=== PATIENT | female | born 1985 | race Caucasian/White ===

== ENCOUNTER 2017-12-24 08:10 | Outpatient (CLI) | payer OTHER ==
[2017-12-24] MEDS: SODIUM CHLORIDE 0.9% INJ 10 ML SYR IV (09:20)
[2017-12-24 09:51] LABS: BASO % 0.4 % (0.0-1.0); EOS # 0.1 10^3/uL (0.0-0.50); EOS % 1.2 % (0.0-3.0); HEMATOCRIT 40.9 % (36.0-47.0); IMMATURE GRANULOCYTE % 0.6 % (0-3.0); LYMPH # 1.6 10^3/uL (1.5-4.5); LYMPH % 31.7 % (24.0-44.0); MEAN CORPUSCULAR HEMOGLOBIN 32.9 pg (27.0-33.0); MEAN CORPUSCULAR HGB CONC 34.2 g/dl (32.0-36.5); MEAN CORPUSCULAR VOLUME 96.2 fl (80.0-96.0); MONO # 0.4 10^3/uL (0.0-0.8); MONO % 8.6 % (0.0-5.0); NEUTROPHILS # 2.9 10^3/uL (1.8-7.7); NEUTROPHILS % 57.5 % (36.0-66.0); PLATELET COUNT, AUTOMATED 175 10^3/uL (150-450); RED BLOOD COUNT 4.25 10^6/uL (4.00-5.40); RED CELL DISTRIBUTION WIDTH 12.1 % (11.5-14.5)
[2017-12-24 10:18] LABS: ALBUMIN 3.3 GM/DL (3.2-5.2); ALKALINE PHOSPHATASE 53 U/L (45-117); ALT/SGPT 18 U/L (12-78); ANION GAP 10 MEQ/L (8-16); AST/SGOT 9 U/L (7-37); BILIRUBIN,TOTAL 0.5 MG/DL (0.2-1.0); BLOOD UREA NITROGEN 11 MG/DL (7-18); CALCIUM LEVEL 8.3 MG/DL (8.5-10.1); CARBON DIOXIDE LEVEL 23 MEQ/L (21-32); CHLORIDE LEVEL 113 MEQ/L (98-107); CREATININE FOR GFR 0.78 MG/DL (0.55-1.30); GLOMERULAR FILTRATION RATE > 60.0 (>60); GLUCOSE, FASTING 86 MG/DL (70-100); IMMUNOGLOBULIN A 77.4 MG/DL (70-400); IMMUNOGLOBULIN G 729 MG/DL (681-1648); IMMUNOGLOBULIN M 29.8 MG/DL (40-230); POTASSIUM SERUM 3.4 MEQ/L (3.5-5.1); SODIUM LEVEL 146 MEQ/L (136-145); TOTAL PROTEIN 6.3 GM/DL (6.4-8.2)
[2017-12-24 11:04] LABS: IMMUNOGLOBULIN E < 3.6 IU/ML (<100)
[2017-12-29 14:19] LABS: ANTI TETANUS ANTIBODY 0.92 IU/mL (<0.10); COMPLEMENT TOTAL (CH50) > 60 U/mL (>41); STREP PNEUMO TYPE 1 1.3 ug/mL (>1.3); STREP PNEUMO TYPE 12F 0.4 ug/mL (>1.3); STREP PNEUMO TYPE 14 12.9 ug/mL (>1.3); STREP PNEUMO TYPE 18C 1.1 ug/mL (>1.3); STREP PNEUMO TYPE 19F 2.5 ug/mL (>1.3); STREP PNEUMO TYPE 23F 0.8 ug/mL (>1.3); STREP PNEUMO TYPE 3 0.6 ug/mL (>1.3); STREP PNEUMO TYPE 4 0.7 ug/mL (>1.3); STREP PNEUMO TYPE 6B 1.4 ug/mL (>1.3); STREP PNEUMO TYPE 7F 2.6 ug/mL (>1.3); STREP PNEUMO TYPE 8 0.7 ug/mL (>1.3); STREP PNEUMO TYPE 9N 0.7 ug/mL (>1.3)
[2017-12-29 14:19] LABS: DIPTHERIA ANTIBODY TITER 0.15 IU/mL (<0.10)
== END 2017-12-24 09:30 | disposition home or self-care (01) ==
LOC: M INFU 08:10
DX: D84.9 Immunodeficiency, unspecified (principal); R06.02 Shortness of breath; J45.30 Mild persistent asthma, uncomplicated; K21.9 Gastro-esophageal reflux disease without esophagitis; D68.2 Hereditary deficiency of other clotting factors; F41.9 Anxiety disorder, unspecified; Z79.899 Other long term (current) drug therapy; Z88.8 Allergy status to other drugs, medicaments and biological substances
CPT/HCPCS: 36591

== ENCOUNTER → 2018-06-02 | Outpatient (REF) ==
--- NOTE | 2018-06-02 13:55 | REP ---
AP lateral cervical spine three views History: Degenerative disc disease There is no acute fracture or subluxation. Intervertebral discs are normal in height. Impression: There is no acute fracture or subluxation. Electronically Signed by Myron Sanabria MD 06/02/2018 01:47 P
== END ==
LOC: M SMT 13:16
PROVIDERS: ATTEND Internal Medicine
DX: Z00.00 Encounter for general adult medical examination without abnormal findings (principal)

== ENCOUNTER → 2019-01-29 | Outpatient (CLI) | payer OTHER ==
--- NOTE | 2019-01-29 18:26 | REP ---
REASON FOR EXAM: Followup. Patient has respirator symptoms. Prior chest CT from an outside institution of 12/15/2018 was reviewed. The lack of intravenous contrast decreases the sensitivity of the exam. There was no evidence of mediastinal or hilar adenopathy. There is a central venous catheter seen in the form of a MediPort, the tip of which is in the superior vena cava. There are no pleural or pericardial effusions. The imaged upper abdomen is within normal limits and essentially unchanged from the prior exam. Surgical clips are again seen in the gallbladder fossa from previous cholecystectomy. The imaged osseous structures are stable and intact. Evaluation of the lung valencia again shows an irregular somewhat spiculated left apical nodule and having a satellite component. The main nodule measures approximately 9 mm in its greatest dimension and the curvilinear satellite component has a maximal dimension of 8 m. Also seen in the left apical region there are 4 and 5 mm sized nodules at the same level and slightly inferior to the dominant nodule. When these are compared to the prior exam they are probably stable, however that prior examination was sent without lung window images and lung windowing performed at the read station today does not have as high resolution characteristics as when lung windowing is performed at the CT console level. There is a nodule in the right middle lobe which measures 6 mm. This is also unchanged from the prior exam. There is bibasilar cylindrical bronchiectasis with thickening of the peribronchiolar interstitium and seen in conjunction with soft tissue density within multiple bronchioles. This is essentially unchanged compared to the prior exam. IMPRESSION:1. Multiple pulmonary nodules as described above with particular note made to the dominant nodule seen in the left lung apex which represents a category 4A lesion according to the revised Fleischner's Society Criteria. Consideration should be made for PET CT at this time with [address] recommended as well. 2. Bronchiectasis with peribronchiolar disease as described above, likely infectious/inflammatory disease process. 3. Other findings as described above. Electronically Signed by Rush Wick DO 02/08/2019 10:36 A
== END ==
LOC: M RAD 13:37
PROVIDERS: ATTEND Thoracic Surgery (Cardiothoracic Vascular Surgery)
DX: R91.8 Other nonspecific abnormal finding of lung field (principal); J47.9 Bronchiectasis, uncomplicated

== ENCOUNTER 2019-02-22 10:44 | Day surgery (SDC) | payer OTHER ==
[~2019-02-22] VITALS: Ht 160 cm; Wt 79.4 kg
[~2019-02-22 10:44] MED LIST: ADVA230A INH; ALLE180T33 PO; ALPR0.5T3 PO; BUSP10TA PO; ELIQ5TAB PO; EPIP0.3I2 IJ; FLUC200T2 PO; FURO40TA2 PO; IMMUN20IV2 IV; LEVO125T4 PO; LEVO137T2 PO; LIDOCAINE 2% INJ 100 MG/5 ML SDV (FOR ANES.) As Ordered ONE; LINZ145C PO; LR 1,000 ML IV ONE; MELO15TA28 PO; METF500T13 PO; METH27TA5 PO; MIDAZOLAM INJ 2 MG/2 ML VIAL (J2250) As Ordered ONE; NIFE30TA7 PO; NITR100C2 PO; ONDA8TAB7 PO; ONDANSETRON 4MG/2ML VIAL (J2405) As Ordered ONE; PANT40TA3 PO; PROPOFOL 200 MG/20 ML VIAL As Ordered ONE; RANI150T14 PO; ROCURONIUM BROMIDE 50 MG/5 ML VIAL As Ordered ONE; SUGAMMADEX SODIUM 500 MG/5 ML VIAL (BRIDION) As Ordered ONE; TOPI100T9 PO; [UNRECOGNIZED DRUG - OTHER] INJ; dexameTHASONE 4 MG/ML 1ML VIAL (J1100) As Ordered ONE; fentaNYL 250 MCG/5 ML INJECTION (J3010) As Ordered ONE
[2019-02-22] MEDS ORDERED: LOVE0.6I2 SC (11:15)
[2019-02-22] MEDS ORDERED: CETACAINE SPRAY 5GM As Ordered ONE (11:25)
[2019-02-22] MEDS ORDERED: ACETAMINOPHEN 1000MG 100ML IV BTL (OFIRMEV) (J0131 PER 10MG) As Ordered ONE (12:15)
[2019-02-22] MEDS: PERCOCET 5MG/325MG TAB PO PRN ×2 (13:40→14:30)
[2019-02-22] MEDS ORDERED: fentaNYL 100 MCG/2 ML INJECTION (J3010) IV PRN (13:45)
[2019-02-22] MEDS ORDERED: ONDANSETRON 4MG/2ML VIAL (J2405) IV PRN (13:45)
[2019-02-22] MEDS ORDERED: LR 1,000 ML IV SCH (13:45)
[2019-02-22] MEDS ORDERED: ALBUTEROL SULFATE 2.5 MG/0.5 ML INH NEB SOLN As Ordered ONE (13:49)
[2019-02-22] MEDS ORDERED: ALBUTEROL SULFATE 2.5 MG/0.5 ML INH NEB SOLN INH ONE (14:00)
--- NOTE | 2019-02-22 14:16 | REP ---
Single view chest x-ray 02/22/2019. Indication: Postoperative assessment. Findings: Right-sided Port-A-Cath is noted. There is minimal atelectasis within the left lung base. There is a small left apical pneumothorax. No significant pleural effusion is present. Impression: Small left apical pneumothorax. Electronically Signed by Rj Abdi DO 02/22/2019 02:07 P
--- NOTE | 2019-02-22 14:27 | RO ---
DATE OF PROCEDURE: 02/22/2019 PREOPERATIVE DIAGNOSES: Bilateral pulmonary nodules of unknown etiology and recurrent infections. POSTPROCEDURE DIAGNOSES: Bilateral pulmonary nodules of unknown etiology and recurrent infections. PROCEDURALIST: Dr. [facility] DIRECTOR: ANESTHESIA: PROCEDURE NOTE: Procedure explained and consent obtained. Ms. Butler was intubated by anesthesia who managed pain and sedation. Crocker procedure was followed. Following this, the bronchoscope was introduced in the trachea. Both lungs were examined. They were friable, erythematous and edematous. The bronchoscope was positioned in the right lower lobe and BAL was done. Bronchoscope was then repositioned in the left lower lobe and a BAL was done. Following this, there were findings throughout the lungs but predominantly involving the mainstems that appeared to be thrush. A brushing was done of one of these lesions. It had been noted that there was some submucosal nodules at the left upper lobe / left lower lobe cathie and these were biopsied. Following this, the ENB probe was placed and registration was done. Using the EMB probe, the left upper lobe pulmonary nodule was located, which was largest of her nodules. Three transbronchial biopsies were taken for culture, five transbronchial biopsies were taken for pathology. Following this, a BAL was done. After assuring visual hemostasis, the bronchoscope was withdrawn. Tolerated well. Postprocedure chest x-ray pending. FINDINGS: 1. Erythematous, edematous and friable airways bilaterally. 2. What appeared to be thrush throughout the lungs, predominately in the mainstems bilaterally. 3. Submucosa lesions in the cathie between the left upper lobe and left lower lobe. 4. No significant secretions. SPECIMENS: 1. Right lower lobe BAL sent to micro for routine culture, fungal culture, and AFB culture. 2. Left lower lobe BAL sent for routine, AFB, and fungal cultures. 3. Brushing of apparent thrush sent to microbiology. 4. Endobronchial biopsies of submucosal lesions located on the cathie between left upper lobe left and lower lobe sent to pathology. 5. Three endobronchial biopsies of the left upper lobe nodule sent for routine culture, AFB culture and fungal cultures. 6. Five endobronchial biopsies a left upper lobe nodules sent to pathology. 7. BAL of the left upper lobe sent to microbiology for routine, fungal, and AFB cultures. [facility]
[2019-02-22 14:45] VITALS: BP 108/71
[2019-02-22] MEDS ORDERED: SODIUM CHLORIDE 0.9% INJ 10 ML SYR IV PRN ×2 (15:30→15:45)
--- NOTE | 2019-02-23 05:46 | REP ---
Clinical: Recovery room evaluation . Comparison: 02/22/2019 at 13:35 Findings: [id number] in stable position. The mediastinum and cardiac silhouette are stable and within normal limits for portable technique. The lung valencia are clear without acute consolidation, effusion, or pneumothorax. Skeletal structures are intact. Impression: No acute cardiopulmonary process appreciated. Electronically Signed by Judson Mckeon MD 02/23/2019 05:37 A
[2019-02-23] MEDS ORDERED: SODIUM CHLORIDE 0.9% INJ 10 ML SYR IV SCH ×2 (09:00)
== END 2019-02-22 16:24 | disposition home or self-care (01) ==
LOC: M SDC 10:44
PROVIDERS: ATTEND Internal Medicine Pulmonary Disease
DX: D36.0 Benign neoplasm of lymph nodes (principal); R91.8 Other nonspecific abnormal finding of lung field; R94.2 Abnormal results of pulmonary function studies; I10 Essential (primary) hypertension; E53.8 Deficiency of other specified B group vitamins; J45.40 Moderate persistent asthma, uncomplicated; J47.9 Bronchiectasis, uncomplicated; K58.9 Irritable bowel syndrome, unspecified; E28.2 Polycystic ovarian syndrome; F43.10 Post-traumatic stress disorder, unspecified; F41.9 Anxiety disorder, unspecified; F90.9 Attention-deficit hyperactivity disorder, unspecified type; G43.909 Migraine, unspecified, not intractable, without status migrainosus; G47.33 Obstructive sleep apnea (adult) (pediatric); K44.9 Diaphragmatic hernia without obstruction or gangrene; K21.9 Gastro-esophageal reflux disease without esophagitis; R23.3 Spontaneous ecchymoses; D83.9 Common variable immunodeficiency, unspecified; D68.2 Hereditary deficiency of other clotting factors; E66.9 Obesity, unspecified; Z88.1 Allergy status to other antibiotic agents; Z88.2 Allergy status to sulfonamides; Z88.5 Allergy status to narcotic agent; Z79.899 Other long term (current) drug therapy; Z79.01 Long term (current) use of anticoagulants; Z86.711 Personal history of pulmonary embolism; Z86.14 Personal history of Methicillin resistant Staphylococcus aureus infection; Z90.710 Acquired absence of both cervix and uterus
CPT/HCPCS: 31623; 31624; 31627; 31628; 71045; 76000; 87070; 87071; 87077; 87102; 87116; 87184; 87205; 87206; 88305; J0131; J1100; J2250; J2405; J3010

== ENCOUNTER → 2019-03-02 | Outpatient (CLI) | payer OTHER ==
[~2019-03-02] MED LIST changes: -LIDOCAINE 2% INJ 100 MG/5 ML SDV (FOR ANES.) As Ordered ONE; +LOVE0.6I2 SC; -LR 1,000 ML IV ONE; -MIDAZOLAM INJ 2 MG/2 ML VIAL (J2250) As Ordered ONE; -ONDANSETRON 4MG/2ML VIAL (J2405) As Ordered ONE; -PROPOFOL 200 MG/20 ML VIAL As Ordered ONE; -ROCURONIUM BROMIDE 50 MG/5 ML VIAL As Ordered ONE; -SUGAMMADEX SODIUM 500 MG/5 ML VIAL (BRIDION) As Ordered ONE; -dexameTHASONE 4 MG/ML 1ML VIAL (J1100) As Ordered ONE; -fentaNYL 250 MCG/5 ML INJECTION (J3010) As Ordered ONE
[2019-03-03 06:53] LABS: SWEAT TEST RT ARM 17.2 MEQ CL/L (0.0-40.0)
[2019-03-03 06:54] LABS: SWEAT TEST LFT ARM 17.2 MEQ CL/L (0.0-40.0); WEIGHT OF SWEAT LFT ARM 38.1 MG
== END ==
LOC: M LAB 08:29
PROVIDERS: ATTEND Internal Medicine Pulmonary Disease
DX: R05 Cough (principal); J47.9 Bronchiectasis, uncomplicated

== ENCOUNTER → 2019-10-21 | Outpatient (CLI) | payer OTHER ==
[~2019-10-21] MED LIST changes: +NIFE1TAB52 PO; -NIFE30TA7 PO; +ONDA8TAB10 PO; -ONDA8TAB7 PO
--- NOTE | 2019-10-22 05:47 | REP ---
Clinical: History of bronchiectasis. Technique: Axial noncontrast images from the thoracic inlet to the upper abdomen with coronal and sagittal re-formations. Comparison: 01/29/2019. Findings: Chronic bronchiectasis and scattered peribronchial thickening are again noted. While most of the small scattered noncalcified nodules on the prior examination and the presumed previously noted acute pneumonitis have resolved, there is a new lobulated mass in the periphery of the right lower lobe measuring approximately 2.5 cm maximal diameter (images 61 - 69). No effusion. No pneumothorax. [id number] identified with tip in the SVC. Thoracic aorta, pulmonary vasculature and heart/pericardium appear relatively normal. Evaluation for adenopathy is significantly limited due to the lack of intravenous contrast. Impression: New 2.5 cm lobulated mass in the periphery of the right lower lobe requires immediate evaluation/attention. Electronically Signed by Judson Mckeon MD 10/22/2019 05:40 A
== END ==
LOC: M RAD 12:56
PROVIDERS: ATTEND Internal Medicine Pulmonary Disease
DX: J47.9 Bronchiectasis, uncomplicated (principal); R91.8 Other nonspecific abnormal finding of lung field

== ENCOUNTER → 2020-01-14 | Outpatient (CLI) | payer OTHER ==
[~2020-01-14] MED LIST changes: +PANT40TA29 PO; -PANT40TA3 PO
--- NOTE | 2020-02-02 15:16 | REP ---
CHEST CT WITHOUT CONTRAST CLINICAL: Follow up abnormal lung findings. COMPARISON: 10/21/2019, 01/29/2019, 12/15/2018 FINDINGS: The most recent prior examination demonstrated a 2.5 cm lobulated mass in the right lower lobe which has been replaced by a smaller area of irregular density possibly representing scarring (images 63-70). Areas of mild linear fibrosis/scarring involving the right middle lobe, lingula, and bilateral lower lobes (left greater than right) are again noted and similar throughout the visualized prior examinations. The most dated prior of 12/15/2018 demonstrated multiple small reticulonodular infiltrative pattern primarily in the right lower lobe which over time appears to have improved with only small residual nodules in the right lower lobe now suggested. These findings may represent a resolving pneumonitis or granulomatous disease, and correlation with pulmonology may be warranted. No new significant area of consolidation, nodule, or mass lesion is appreciated. Few mildly prominent lymph node in the mediastinum measure up to approximately 10 mm and remain essentially unchanged. No effusion. No pneumothorax. Further evaluation of the mediastinum demonstrates relatively normal thoracic aorta, pulmonary vasculature, and heart/pericardium. Surrounding musculoskeletal structures are intact. Limited upper abdomen demonstrates normal bilateral adrenal glands and evidence for prior cholecystectomy. IMPRESSION: The previously noted 2.5 cm nodular lesion in the right lower lobe has been replaced by a smaller area of atelectasis/scarring. Chronic areas of linear fibrosis and scarring noted bilaterally remain relatively stable through 12/15/2018, and small previously noted scattered nodules have improved. Correlation with pulmonary consultation is recommended. Findings may represent a resolving pneumonitis or granulomatous disease. [facility]
== END ==
LOC: M RAD 16:14
PROVIDERS: ATTEND Internal Medicine Pulmonary Disease
DX: R91.8 Other nonspecific abnormal finding of lung field (principal)